=== PATIENT | male | born 2000 | race Caucasian/White ===

== ENCOUNTER 2018-07-07 10:43 | Emergency (ER) | payer OTHER ==
[2018-07-07 10:54] VITALS: BP 130/75; RESP 16; TEMP 98.5; O2SAT 99
--- NOTE | 2018-07-07 10:59 | ED PDOC ---
Arrival/HPI - General Chief Complaint: ENT Problem Time Seen by Provider: 07/07/18 10:55 Historian: Patient - History of Present Illness Narrative History of Present Illness (Text): 07/07/18 10:59 A 18 year old male with no specific past medical history presents to the emergency department complaining of right ear pain since 3 weeks ago. Patient reports he swims regularly and has been taking [id number] eardrops for pain. Patient denies any hearing changes, ear puss, nasal congestion, rhinorrhea , fever, chills, shortness of breath, chest pain, diarrhea, nausea, vomiting, urinary symptoms, back pain, neck pain, headache, dizziness, or any other complaints. PMD: Dr. Trey Calle Time/Duration: > week (3 weeks ago ) Symptom Onset: Gradual Symptom Course: Unchanged Activities at Onset: Light Context: Home Past Medical History - Provider Review Nursing Documentation Reviewed: Yes - Psychiatric Hx Psychophysiologic Disorder: No Hx Substance Use: No Family/Social History - Physician Review Nursing Documentation Reviewed: Yes Family/Social History: Unknown Family HX Smoking Status: Never Smoked Hx Alcohol Use: No Hx Substance Use: No Allergies/Home Meds Allergies/Adverse Reactions: Allergies No Known Allergies Allergy (Verified 07/07/18 10:50) Review of Systems - Physician Review All systems were reviewed & negative as marked: Yes - Review of Systems ENT: Other (Right ear pain ). absent: Normal, Hearing Changes, Tinnitus, TMJ Pain, Voice Changes, Sore Throat, Rhinorrhea, Epistaxis, Sinus Congestion ( nasal congestion) Respiratory: absent: SOB Cardiovascular: absent: Chest Pain Gastrointestinal: absent: Diarrhea, Nausea, Vomiting Genitourinary Male: absent: Urinary Output Changes Musculoskeletal: absent: Back Pain, Neck Pain Neurological: absent: Headache, Dizziness Physical Exam Vital Signs Reviewed: Yes Vital Signs Temp Pulse Resp BP Pulse Ox 07/07/18 11:13 98.5 F 67 16 130/75 99 07/07/18 10:51 98.5 F 67 16 130/75 99 07/07/18 10:43 98.5 F 67 16 130/75 99 Temperature: Afebrile Blood Pressure: Normal Pulse: Regular Respiratory Rate: Normal Appearance: Positive for: Well-Appearing, Non-Toxic, Comfortable Pain Distress: None Mental Status: Positive for: Alert and Oriented X 3 - Systems Exam Head: Present: Atraumatic Ears: Present: Normal, NORMAL TM. No: Normal Canal (swelling, yellow discharge, tender, mild erythema), TM Bulging, Fluid, TM Perf Mouth: Present: Moist Mucous Membranes Pharnyx: Present: Normal. No: ERYTHEMA, EXUDATE, TONSILS ENLARGED, Uvular Deviation Nose (Internal): Present: Normal Inspection Neurological: Present: GCS=15, CN II-XII Intact, Speech Normal, Motor Func Grossly Intact Psychiatric: Present: Alert, Oriented x 3, Normal Insight, Normal Concentration Medical Decision Making ED Course and Treatment: 07/07/18 11:07 Impression: 18 year old male presenting to the emergency department complaining of right ear pain. Differential Diagnosis included but are not limited to: Otitis externa Plan: -- Patient with given Rx Abx for tx. He will f/u with his primary care doctor. He was advised to return to the ED if he has worsening symptoms or any other concern. - Scribe Statement The provider has reviewed the documentation as recorded by the Adelina Davis All medical record entries made by the Charityibe were at my direction and personally dictated by me. I have reviewed the chart and agree that the record accurately reflects my personal performance of the history, physical exam, medical decision making, and the department course for this patient. I have also personally directed, reviewed, and agree with the discharge instructions and disposition. Disposition/Present on Arrival - Present on Arrival Any Indicators Present on Arrival: No History of DVT/PE: No History of Uncontrolled Diabetes: No Urinary Catheter: No History of Decub. Ulcer: No History Surgical Site Infection Following: None - Disposition Have Diagnosis and Disposition been Completed?: Yes Diagnosis: Otitis externa Disposition: HOME/ ROUTINE Disposition Time: 11:23 Patient Plan: Discharge Patient Problems: Current Active Problems Problem Status Onset Otitis externa Acute Condition: IMPROVED Discharge Instructions (ExitCare): Outer Ear Infection (DC) Additional Instructions: JUANA GARCIA, thank you for letting us take care of you today. Your provider was Deion Roberson DO and you were treated for Otitis Externa. The emergency medical care you received today was directed at your acute symptoms. If you were prescribed any medication, please fill it and take as directed. It may take several days for your symptoms to resolve. Return to the Emergency Department if your symptoms worsen, do not improve, or if you have any other problems. Please contact your doctor or call one of the physicians/clinics you have been referred to that are listed on the Patient Visit Information form that is included in your discharge packet. Bring any paperwork you were given at discharge with you along with any medications you are taking to your follow up visit. Our treatment cannot replace ongoing medical care by a primary care provider outside of the emergency department. Thank you for allowing the [facility] team to be part of your care today. If you had an X-Ray or CT scan: A Radiologist will review the ED reading if any change in treatment is needed we will contact you. If you had a blood, urine, or wound culture: It will take several days for the results, if any change in treatment is needed we will contact you. If you had an STI test: It will take 48 hours for the results. Please call after 1 week if you have not heard back. Prescriptions: Ibuprofen [Motrin] 600 mg PO Q6 PRN #30 tab PRN Reason: Pain, Moderate (4-7) Ofloxacin Otic 0.3% [Floxin Otic 0.3%] 5 drop AD BID #1 bottle Referrals: Trey Webber MD [Family Provider] - Follow up with primary Forms: [employer] (Italian), WORK NOTE
[2018-07-07 11:06] VITALS: PULSE 67
== END 2018-07-07 11:15 | disposition home or self-care (01) ==
LOC: ED 10:43
DX: H60.90 Unspecified otitis externa, unspecified ear (principal)